=== PATIENT | male | born 1955 | race Two or more races ===

== ENCOUNTER 2017-06-13 09:57 | Emergency (ER) | payer OTHER ==
[~2017-06-13] VITALS: Ht 175.3 cm; Wt 86.2 kg
[2017-06-13] MEDS ORDERED: ASPirin 81 mg TAB PO ONE (10:15)
[2017-06-13 10:29] LABS: Basophils # (auto) 0 uL; Basophils % (auto) 0.4 % (0.0-2.0); Eosinophils # (auto) 0.1 uL; Hematocrit 48.6 % (41.0-53.0); Hemoglobin 16.7 g/dL (13.5-17.5); Lymphocytes % (auto) 32.3 % (10.0-50.0); Mean Corpuscular Hemoglobin 30.4 pg (28.0-32.0); Mean Corpuscular Hgb Conc. 34.3 g/dL (32.0-36.0); Mean Corpuscular Volume 88.6 fL (80.0-100.0); Mean Platelet Volume 7.2 fL (6.9-10.8); Monocytes # (auto) 0.4 uL; Monocytes % (auto) 6.8 % (0.0-12.0); Neutrophils # (auto) 3.8 uL; Neutrophils % (auto) 59.5 % (37.0-80.0); Nucleated Red Blood Cells % 0.1 %; Platelet Count (auto) 287 10^3/uL (140-450); Red Cell Distribution Width 13.9 % (11.8-14.3); White Blood Cell 6.3 10^3/uL (4.4-10.8)
[2017-06-13] MEDS ORDERED: LORazepam 2MG/ML-1ML VIAL IV ONE (10:30)
[2017-06-13 10:46] LABS: INR 1.03 (0.9-1.15); Partial Thromboplastin Time 28.2 sec (22.64-33.71); Prothrombin Time 11.2 sec (9.37-12.3)
[2017-06-13 10:55] LABS: Albumin 3.9 g/dL (3.4-5.0); Alkaline Phosphatase 75 U/L (45-117); Anion Gap 9 (5-15); Aspartate Aminotransferase 15 U/L (15-37); BUN/Creatinine Ratio 14.1; Bilirubin, Total 0.6 mg/dL (0.2-1.0); Blood Urea Nitrogen 13 mg/dL (7-18); Calcium 9.1 mg/dL (8.5-10.1); Carbon Dioxide 20 mmol/L (21-32); Chloride 107 mmol/L (98-107); GFR African American 107 mL/min; GFR Non-African American 89 mL/min; Glucose 116 mg/dL (74-106); Magnesium 2.4 mg/dL (1.6-2.6); Potassium 3.9 mmol/L (3.5-5.1); Sodium 136 mmol/L (136-145)
[2017-06-13 11:01] LABS: B-Type Natriuretic Peptide 4.65 pg/mL (0-100)
[2017-06-13 11:11] LABS: Temperature: 22.9 C (20.0-25.0)
[2017-06-13 12:15] VITALS: BP 120/77
== END 2017-06-13 12:42 | disposition home or self-care (01) ==
LOC: EDBD 09:57 → ER 09:57
DX: F41.9 Anxiety disorder, unspecified (principal); I10 Essential (primary) hypertension
CPT/HCPCS: 36415; 71010; 80053; 83735; 83880; 84443; 84484; 85025; 85610; 85730; 93005; 96374; 99285; J2060